=== PATIENT | female | born 1960 | race Two or more races ===

== ENCOUNTER 2017-07-23 12:27 | Inpatient (IN) | payer MEDICAID ==
[~2017-07-23] VITALS: Ht 167.6 cm; Wt 99.8 kg
[2017-07-23 13:30] LABS: Basophils # (auto) 0 uL; Eosinophils # (auto) 0 uL; Monocytes # (auto) 0.6 uL; Nucleated Red Blood Cells % 0.4 %; Platelet Count (auto) 84 10^3/uL (140-450); Red Cell Distribution Width 16.2 % (11.8-14.3); White Blood Cell 5.5 10^3/uL (4.4-10.8)
[2017-07-23 13:31] LABS: Basophils % (auto) 0.6 % (0.0-2.0); Eosinophils % (auto) 0.9 % (0.0-7.0); Hematocrit 34.2 % (36.0-46.0); Hemoglobin 12.1 g/dL (12.2-16.2); Lymphocytes % (auto) 36.2 % (10.0-50.0); Mean Corpuscular Hgb Conc. 35.2 g/dL (32.0-36.0); Mean Corpuscular Volume 113.6 fL (80.0-100.0); Monocytes % (auto) 10.2 % (0.0-12.0); Neutrophils # (auto) 2.9 uL; Neutrophils % (auto) 52.1 % (37.0-80.0); Red Blood Cells 3.01 10^6/uL (4.0-5.20)
[2017-07-23] MEDS ORDERED: SODIUM CHLORIDE 0.9% 1,000 ML IV ONE (14:12)
[2017-07-23 14:48] LABS: Magnesium 2.3 mg/dL (1.6-2.6)
[2017-07-23 15:05] LABS: INR 1.73 (0.9-1.15); Partial Thromboplastin Time 34.5 sec (22.64-33.71)
[2017-07-23 15:42] LABS: Albumin 3.1 g/dL (3.4-5.0); BUN/Creatinine Ratio 7.1; Bilirubin, Total 17.8 mg/dL (0.2-1.0); Calcium 8.5 mg/dL (8.5-10.1); Potassium 3.1 mmol/L (3.5-5.1); Total Protein 6.8 g/dL (6.4-8.2)
[2017-07-23] MEDS ORDERED: cefTRIAXone 1GM/10ml IVPUSH 10 ML IV ONE (15:45)
[2017-07-23 16:58] LABS: Urine Bacteria FEW /hpf (None Seen); Urine Blood Negative /uL (Negative); Urine Mucus FEW (None Seen); Urine Specific Gravity 1.018 (1.001-1.035); Urine WBC 1 /hpf (0 - 5)
[2017-07-23] MEDS ORDERED: POTASSIUM CHL 10% (20 MEQ/15ML) 15ml ORAL SOLN PO ONE (17:30)
[2017-07-23] MEDS ORDERED: NITROGLYCERIN 0.4 MG SL TAB SL PRN (18:00)
[2017-07-23] MEDS ORDERED: MORPHINE SULFATE 10 MG/ML INJ 1ML SDV IV PRN ×3 (18:00)
[2017-07-23] MEDS ORDERED: SPIRONOLACTONE 25 MG TAB PO ONE (18:00)
[2017-07-23] MEDS ORDERED: PROMETHAZINE HCL 25 MG/ML 1ML IV PRN (18:00)
[2017-07-23] MEDS ORDERED: TEMAZEPAM 15 MG CAP PO PRN (18:00)
[2017-07-23] MEDS: FUROSEMIDE 20 MG TAB PO SCH (18:25)
[2017-07-23] MEDS: LORazepam 0.5 MG TAB PO PRN (18:25)
[2017-07-23] MEDS ORDERED: THIAMINE HCL 100 MG/ML 2ML VIAL IV ONE (19:00)
[2017-07-23 19:53] VITALS: BP 142/87
[2017-07-23] MEDS: FAMOTIDINE 20 MG TAB PO SCH (22:30)
[2017-07-23] MEDS: LACTULOSE 20Gm/30ML SOLN PO SCH (22:30)
[2017-07-23] MEDS: chlordiazePOXIDE HCL 25 MG CAP PO PRN (22:37)
[2017-07-23 22:54] VITALS: BP 142/87
[2017-07-24] VITALS (7 sets, daily range): BP systolic 121–138; BP diastolic 65–81
[2017-07-24] MEDS: SPIRONOLACTONE 25 MG TAB PO SCH ×2 (05:53→18:24)
[2017-07-24] MEDS: FUROSEMIDE 20 MG TAB PO SCH ×2 (05:53→18:24)
[2017-07-24 07:19] LABS: Basophils # (auto) 0 uL; Eosinophils # (auto) 0.1 uL; Eosinophils % (auto) 1.2 % (0.0-7.0)
[2017-07-24 07:22] LABS: Basophils % (auto) 0.7 % (0.0-2.0); Hematocrit 31.7 % (36.0-46.0); Hemoglobin 11.3 g/dL (12.2-16.2); Lymphocytes # (auto) 2.5 uL; Lymphocytes % (auto) 45.4 % (10.0-50.0); Mean Corpuscular Hemoglobin 40.2 pg (28.0-32.0); Mean Corpuscular Hgb Conc. 35.5 g/dL (32.0-36.0); Mean Corpuscular Volume 113.3 fL (80.0-100.0); Monocytes # (auto) 0.5 uL; Monocytes % (auto) 9.2 % (0.0-12.0); Neutrophils # (auto) 2.4 uL; Neutrophils % (auto) 43.5 % (37.0-80.0); Nucleated Red Blood Cells % 0.2 %; Red Cell Distribution Width 15.5 % (11.8-14.3); White Blood Cell 5.6 10^3/uL (4.4-10.8)
[2017-07-24 07:24] LABS: Platelet Count (auto) 74 10^3/uL (140-450)
[2017-07-24 07:53] LABS: Albumin 2.8 g/dL (3.4-5.0); Bilirubin, Total 17.8 mg/dL (0.2-1.0); Calcium 8.6 mg/dL (8.5-10.1); Potassium 3.5 mmol/L (3.5-5.1); Total Protein 6.4 g/dL (6.4-8.2)
[2017-07-24 09:04] LABS: Hepatitis B Surface Antibody Negative
[2017-07-24 09:29] LABS: Hepatitis B Surface Antigen Negative (Negative)
[2017-07-24 09:37] LABS: Hepatitis A Total Antibody Negative; Hepatitis C Antibody Negative (Negative)
[2017-07-24 09:38] LABS: Hepatitis B Core Total AB Negative
[2017-07-24] MEDS: FAMOTIDINE 20 MG TAB PO SCH ×2 (11:05→22:32)
[2017-07-24] MEDS: LORazepam 0.5 MG TAB PO PRN ×2 (11:05→18:27)
[2017-07-24] MEDS: THIAMINE HCL 100 MG/ML 2ML VIAL IV SCH (11:06)
[2017-07-24] MEDS: LACTULOSE 20Gm/30ML SOLN PO SCH ×2 (11:06→22:32)
[2017-07-24] MEDS: chlordiazePOXIDE HCL 25 MG CAP PO PRN ×2 (14:52→22:32)
[2017-07-24 16:25] LABS: % Iron Saturation 73.6 % (15-50)
[2017-07-25 05:50] VITALS: BP 117/57
[2017-07-25] MEDS: FUROSEMIDE 20 MG TAB PO SCH (05:50)
[2017-07-25] MEDS: SPIRONOLACTONE 25 MG TAB PO SCH (05:50)
[2017-07-25 07:18] LABS: Albumin 2.6 g/dL (3.4-5.0); BUN/Creatinine Ratio 6.8; Calcium 8.7 mg/dL (8.5-10.1); Potassium 3.2 mmol/L (3.5-5.1)
[2017-07-25 07:29] LABS: Bilirubin, Total 15.8 mg/dL (0.2-1.0); Total Protein 5.9 g/dL (6.4-8.2)
[2017-07-25 08:00] VITALS: BP 119/78
[2017-07-25] MEDS ORDERED: POTASSIUM CHL 10 Meq TABLET PO ONE (08:45)
[2017-07-25 09:00] VITALS: BP 119/78
[2017-07-25] MEDS ORDERED: SPIR25TA88 PO (10:01)
[2017-07-25] MEDS ORDERED: MULTTAB75 PO (10:01)
[2017-07-25] MEDS ORDERED: FUR20T PO (10:01)
[2017-07-25] MEDS ORDERED: LACT10SO3 PO (10:01)
[2017-07-25] MEDS: THIAMINE HCL 100 MG/ML 2ML VIAL IV SCH (10:08)
[2017-07-25] MEDS: LACTULOSE 20Gm/30ML SOLN PO SCH (10:08)
[2017-07-25] MEDS: LORazepam 0.5 MG TAB PO PRN (10:08)
[2017-07-25] MEDS: FAMOTIDINE 20 MG TAB PO SCH (10:08)
[2017-07-25 11:06] LABS: Alcohol, Urine < 3.0 mg/dL (0-5); Amphetamine Screen, Urine NEGATIVE (NEGATIVE); Barbiturate Scree,Urine NEGATIVE (NEGATIVE); Benzodiazephine Screen, Urine POSITIVE (NEGATIVE); Cannabinoid Screen, Urine NEGATIVE (NEGATIVE); Cocaine Screen, Urine NEGATIVE (NEGATIVE); Opiate Scree,Urine NEGATIVE (NEGATIVE); Phencyclidine Screen, Urine NEGATIVE (NEGATIVE)
[2017-07-25 11:54] VITALS: BP 123/70
[2017-07-25 13:00] VITALS: BP 123/70
== END 2017-07-25 14:00 | disposition home health service (06) | DRG 280 ==
LOC: EDBD 12:27 → ER 12:27 → TELE 12:28 → TELE-CENTR 19:53 → CENTRAL 07-24 16:01
PROVIDERS: ADMIT Internal Medicine; ATTEND Internal Medicine
DX: K70.31 Alcoholic cirrhosis of liver with ascites (principal); J90 Pleural effusion, not elsewhere classified; J18.9 Pneumonia, unspecified organism; E72.20 Disorder of urea cycle metabolism, unspecified; K85.90 Acute pancreatitis without necrosis or infection, unspecified; K76.6 Portal hypertension; D69.6 Thrombocytopenia, unspecified; E44.1 Mild protein-calorie malnutrition; J98.11 Atelectasis; E88.09 Other disorders of plasma-protein metabolism, not elsewhere classified; E87.6 Hypokalemia; F10.10 Alcohol abuse, uncomplicated; F41.9 Anxiety disorder, unspecified; H54.8 Legal blindness, as defined in USA; K57.30 Diverticulosis of large intestine without perforation or abscess without bleeding; R60.1 Generalized edema; H35.53 Other dystrophies primarily involving the sensory retina; F40.228 Other natural environment type phobia; Z60.2 Problems related to living alone; R16.1 Splenomegaly, not elsewhere classified; E66.9 Obesity, unspecified; I86.8 Varicose veins of other specified sites; Z80.41 Family history of malignant neoplasm of ovary; Z82.1 Family history of blindness and visual loss; Z83.3 Family history of diabetes mellitus; Z90.49 Acquired absence of other specified parts of digestive tract; Z68.35 Body mass index [BMI] 35.0-35.9, adult
CPT/HCPCS: 36415; 71046; 74176; 80053; 80061; 80307; 81001; 82105; 82140; 82150; 82390; 83540; 83550; 83690; 83735; 84443; 85025; 85610; 85652; 85730; 86038; 86704; 86706; 86708; 86803; 87040; 87340; 93005; 93306; 96374

== ENCOUNTER 2017-09-24 18:36 | Inpatient (IN) | payer MEDICAID ==
[~2017-09-24] VITALS: Ht 165.1 cm; Wt 101.9 kg
[~2017-09-24 18:36] MED LIST: FUR20T PO; LACT10SO3 PO; MULTTAB75 PO; SPIR25TA88 PO
[2017-09-24 20:12] LABS: Basophils # (auto) 0 uL; Basophils % (auto) 0.2 % (0.0-2.0); Eosinophils # (auto) 0 uL; Eosinophils % (auto) 0.2 % (0.0-7.0); Lymphocytes # (auto) 2.3 uL; Neutrophils # (auto) 7.5 uL; Nucleated Red Blood Cells % 0.1 %; Platelet Count (auto) 126 10^3/uL (140-450); Red Blood Cells 2.44 10^6/uL (4.0-5.20); Red Cell Distribution Width 14.8 % (11.8-14.3)
[2017-09-24 20:15] LABS: Hematocrit 28.8 % (36.0-46.0); Hemoglobin 10.3 g/dL (12.2-16.2); Lymphocytes % (auto) 20.2 % (10.0-50.0); Mean Corpuscular Hemoglobin 42.3 pg (28.0-32.0); Mean Corpuscular Hgb Conc. 35.8 g/dL (32.0-36.0); Mean Corpuscular Volume 118.2 fL (80.0-100.0); Monocytes # (auto) 1.3 uL; Monocytes % (auto) 12.1 % (0.0-12.0); Neutrophils % (auto) 67.3 % (37.0-80.0); White Blood Cell 11.1 10^3/uL (4.4-10.8)
[2017-09-24 20:20] LABS: Albumin 2.6 g/dL (3.4-5.0); BUN/Creatinine Ratio 11.2; Calcium 8.8 mg/dL (8.5-10.1); Potassium 3.2 mmol/L (3.5-5.1)
[2017-09-24 20:33] LABS: Bilirubin, Total 24.6 mg/dL (0.2-1.0); Total Protein 5.9 g/dL (6.4-8.2)
[2017-09-25] MEDS ORDERED: POTASSIUM CHL 10% (20 MEQ/15ML) 15ml ORAL SOLN PO ONE (10:45)
[2017-09-25] MEDS ORDERED: NITROGLYCERIN 0.4 MG SL TAB SL PRN (11:00)
[2017-09-25] MEDS ORDERED: PROMETHAZINE HCL 25 MG/ML 1ML IV PRN (11:00)
[2017-09-25] MEDS ORDERED: LORazepam 2MG/ML-1ML VIAL IV PRN (11:00)
[2017-09-25] MEDS ORDERED: chlordiazePOXIDE HCL 25 MG CAP PO PRN (11:00)
[2017-09-25] MEDS ORDERED: AZITHROMYCIN 500MG/ 250ML 250 ML IV ONE (11:00)
[2017-09-25] MEDS ORDERED: MORPHINE SULFATE 4 MG/ML SYR/VIAL IV PRN ×2 (11:00)
[2017-09-25] MEDS ORDERED: cefTRIAXone 1GM/10ml IVPUSH 10 ML IV ONE ×2 (11:00)
[2017-09-25] MEDS ORDERED: THIAMINE HCL 100 MG/ML 2ML VIAL IV ONE (11:00)
[2017-09-25] MEDS ORDERED: PANTOPRAZOLE 40 MG/10 ML VIAL IV ONE (11:00)
[2017-09-25] MEDS ORDERED: LACTULOSE 20Gm/30ML SOLN PO SCH ×2 (11:04→14:00)
[2017-09-25] MEDS ORDERED: MULTIPLE VITAMINS W/ MINERALS TAB PO ONE (11:15)
[2017-09-25] MEDS ORDERED: FUROSEMIDE 20 MG TAB PO ONE (11:15)
[2017-09-25] MEDS ORDERED: SPIRONOLACTONE 25 MG TAB PO ONE (11:15)
[2017-09-25 11:40] LABS: Amylase 25 U/L (25-115); Lipase 269 U/L (73-393)
[2017-09-25 11:58] LABS: Lactic Acid w/Reflex 2.2 mmol/L (0.4-2.0)
[2017-09-25 12:29] LABS: Urine Bacteria MANY /hpf (None Seen); Urine Blood Negative /uL (Negative); Urine Mucus FEW (None Seen); Urine Specific Gravity 1.022 (1.001-1.035); Urine WBC 42 /hpf (0 - 5)
[2017-09-25 13:08] LABS: INR 1.94 (0.9-1.15); Prothrombin Time 21.3 sec (9.37-12.3)
[2017-09-25] MEDS ORDERED: RIFAXIMIN 550 MG TAB PO ONE (13:30)
[2017-09-25] MEDS ORDERED: LACTULOSE 20Gm/30ML SOLN PO PRN (14:45)
[2017-09-25 17:11] VITALS: BP 99/54
[2017-09-25] MEDS ORDERED: FUROSEMIDE 20 MG TAB PO SCH (18:00)
[2017-09-25] MEDS ORDERED: SPIRONOLACTONE 25 MG TAB PO SCH (18:00)
[2017-09-25] MEDS: ALBUTEROL SULF 2.5 MG/0.5ML(0.5%) NEB SOLN NEB PRN (19:00)
[2017-09-25 21:02] VITALS: BP 99/54
[2017-09-25 21:36] VITALS: BP 108/64
[2017-09-25] MEDS: TEMAZEPAM 15 MG CAP PO PRN (21:56)
[2017-09-25] MEDS ORDERED: PATIENTS OWN MEDICATION (Lactulose 30 ML) PO SCH (22:00)
[2017-09-25] MEDS ORDERED: RIFAXIMIN 550 MG TAB PO SCH (22:00)
[2017-09-26 05:00] VITALS: BP 110/71
[2017-09-26 06:27] LABS: Basophils # (auto) 0 uL; Hematocrit 23.2 % (36.0-46.0); Lymphocytes # (auto) 3.1 uL; Monocytes # (auto) 1.4 uL; Neutrophils # (auto) 7.9 uL; Nucleated Red Blood Cells % 0.1 %
[2017-09-26 06:38] LABS: Basophils % (auto) 0.2 % (0.0-2.0); Eosinophils # (auto) 0.1 uL; Eosinophils % (auto) 1.1 % (0.0-7.0); Hemoglobin 8.5 g/dL (12.2-16.2); Lymphocytes % (auto) 24.6 % (10.0-50.0); Mean Corpuscular Hemoglobin 43.1 pg (28.0-32.0); Mean Corpuscular Hgb Conc. 36.7 g/dL (32.0-36.0); Mean Corpuscular Volume 117.6 fL (80.0-100.0); Monocytes % (auto) 11.4 % (0.0-12.0); Neutrophils % (auto) 62.7 % (37.0-80.0); Red Blood Cells 1.98 10^6/uL (4.0-5.20); Red Cell Distribution Width 14.5 % (11.8-14.3); White Blood Cell 12.5 10^3/uL (4.4-10.8)
[2017-09-26 06:47] LABS: Platelet Count (auto) 88 10^3/uL (140-450)
[2017-09-26 06:51] LABS: Potassium 3.5 mmol/L (3.5-5.1)
[2017-09-26 06:56] LABS: Albumin 2.2 g/dL (3.4-5.0); BUN/Creatinine Ratio 16.1; Calcium 8.6 mg/dL (8.5-10.1)
[2017-09-26 07:07] LABS: Bilirubin, Total 24.5 mg/dL (0.2-1.0)
[2017-09-26 09:11] VITALS: BP 91/52
[2017-09-26] MEDS: cefTRIAXone 1GM/10ml IVPUSH 10 ML IV SCH (09:47)
[2017-09-26] MEDS: MULTIPLE VITAMINS W/ MINERALS TAB PO SCH (09:48)
[2017-09-26] MEDS: PANTOPRAZOLE 40 MG TAB PO SCH (09:48)
[2017-09-26] MEDS ORDERED: FUROSEMIDE 20 MG TAB PO SCH ×2 (10:00)
[2017-09-26] MEDS ORDERED: AZITHROMYCIN 500MG/ 250ML 250 ML IV SCH (10:00)
[2017-09-26] MEDS ORDERED: THIAMINE HCL 100 MG/ML 2ML VIAL IV SCH (10:00)
[2017-09-26 11:14] VITALS: BP 105/56
[2017-09-26] MEDS ORDERED: POLYETHYLENE GLYCOL 17 GM PWDR PO PRN (15:15)
[2017-09-26 16:14] VITALS: BP 107/55
[2017-09-26] MEDS: ALPRAZolam 0.5 MG TAB PO PRN (16:32)
[2017-09-26] MEDS: THIAMINE HCL 100 MG TAB PO SCH (16:32)
[2017-09-26] MEDS: TEMAZEPAM 15 MG CAP PO PRN (21:41)
[2017-09-26 22:00] VITALS: BP 127/60
[2017-09-27 05:00] VITALS: BP 97/55
[2017-09-27] MEDS: ALPRAZolam 0.5 MG TAB PO PRN ×3 (05:06→21:00)
[2017-09-27 08:00] VITALS: BP 104/64
[2017-09-27] MEDS: PANTOPRAZOLE 40 MG TAB PO SCH (09:15)
[2017-09-27] MEDS: THIAMINE HCL 100 MG TAB PO SCH (09:15)
[2017-09-27] MEDS: MULTIPLE VITAMINS W/ MINERALS TAB PO SCH (09:15)
[2017-09-27] MEDS: cefTRIAXone 1GM/10ml IVPUSH 10 ML IV SCH (09:19)
[2017-09-27] MEDS: LEVOFLOXACIN 500MG 100 ML IV SCH (09:22)
[2017-09-27] MEDS: ALBUTEROL SULF 2.5 MG/0.5ML(0.5%) NEB SOLN NEB PRN (09:36)
[2017-09-27 12:00] VITALS: BP 101/60
[2017-09-27 17:30] VITALS: BP 118/58
[2017-09-27 22:00] VITALS: BP 92/50
[2017-09-27] MEDS: TEMAZEPAM 15 MG CAP PO PRN (22:34)
[2017-09-28] MEDS: ALPRAZolam 0.5 MG TAB PO PRN ×2 (00:01→13:44)
[2017-09-28 05:09] LABS: Basophils # (auto) 0.1 uL; Eosinophils # (auto) 0.3 uL; Hemoglobin 9.1 g/dL (12.2-16.2); Lymphocytes # (auto) 4.1 uL; Nucleated Red Blood Cells % 0.1 %; Platelet Count (auto) 90 10^3/uL (140-450)
[2017-09-28 05:11] LABS: Basophils % (auto) 0.8 % (0.0-2.0); Eosinophils % (auto) 3.1 % (0.0-7.0); Hematocrit 24.4 % (36.0-46.0); Lymphocytes % (auto) 39.7 % (10.0-50.0); Mean Corpuscular Hemoglobin 43.4 pg (28.0-32.0); Mean Corpuscular Hgb Conc. 37.1 g/dL (32.0-36.0); Mean Corpuscular Volume 117.2 fL (80.0-100.0); Monocytes % (auto) 10.1 % (0.0-12.0); Neutrophils # (auto) 4.8 uL; Neutrophils % (auto) 46.3 % (37.0-80.0); Red Blood Cells 2.08 10^6/uL (4.0-5.20); Red Cell Distribution Width 14.6 % (11.8-14.3); White Blood Cell 10.3 10^3/uL (4.4-10.8)
[2017-09-28 05:42] LABS: Bilirubin, Direct 11.1 mg/dL (0-0.2); Bilirubin, Total 18.2 mg/dL (0.2-1.0); Potassium 3.2 mmol/L (3.5-5.1); Total Protein 5.1 g/dL (6.4-8.2)
[2017-09-28 06:00] VITALS: BP 98/59
[2017-09-28 09:01] VITALS: BP 92/59
[2017-09-28] MEDS: MULTIPLE VITAMINS W/ MINERALS TAB PO SCH ×2 (09:40→10:11)
[2017-09-28] MEDS: THIAMINE HCL 100 MG TAB PO SCH ×2 (09:40→10:13)
[2017-09-28] MEDS: PANTOPRAZOLE 40 MG TAB PO SCH ×2 (09:40→10:12)
[2017-09-28] MEDS: cefTRIAXone 1GM/10ml IVPUSH 10 ML IV SCH (11:53)
[2017-09-28] MEDS: LEVOFLOXACIN 500MG 100 ML IV SCH (11:53)
[2017-09-28 12:00] VITALS: BP 100/57
[2017-09-28] MEDS ORDERED: POTASSIUM CHL 20 Meq TABLET PO ONE ×2 (13:15→13:45)
[2017-09-28 17:00] VITALS: BP 102/50
[2017-09-28 20:00] VITALS: BP 98/45
[2017-09-28 20:57] VITALS: BP 102/50
[2017-09-28] MEDS: TEMAZEPAM 15 MG CAP PO PRN (22:04)
[2017-09-29] VITALS (7 sets, daily range): BP systolic 87–161; BP diastolic 40–70
[2017-09-29 06:53] LABS: Albumin 2.2 g/dL (3.4-5.0); BUN/Creatinine Ratio 12.4; Bilirubin, Direct 10.5 mg/dL (0-0.2); Bilirubin, Total 17.5 mg/dL (0.2-1.0); Potassium 3.5 mmol/L (3.5-5.1); Total Protein 5.5 g/dL (6.4-8.2)
[2017-09-29 07:01] LABS: Eosinophils # (auto) 0.4 uL; Hemoglobin 9.4 g/dL (12.2-16.2); Monocytes # (auto) 1.3 uL; Nucleated Red Blood Cells % 0.1 %; White Blood Cell 12.3 10^3/uL (4.4-10.8)
[2017-09-29 07:03] LABS: Basophils # (auto) 0 uL; Basophils % (auto) 0.4 % (0.0-2.0); Eosinophils % (auto) 3.6 % (0.0-7.0); Hematocrit 26.1 % (36.0-46.0); Lymphocytes # (auto) 2.9 uL; Lymphocytes % (auto) 23.2 % (10.0-50.0); Mean Corpuscular Hemoglobin 43.1 pg (28.0-32.0); Mean Corpuscular Hgb Conc. 35.9 g/dL (32.0-36.0); Neutrophils # (auto) 7.6 uL; Neutrophils % (auto) 61.8 % (37.0-80.0); Platelet Count (auto) 115 10^3/uL (140-450); Red Blood Cells 2.18 10^6/uL (4.0-5.20); Red Cell Distribution Width 14.8 % (11.8-14.3)
[2017-09-29] MEDS: PANTOPRAZOLE 40 MG TAB PO SCH (09:51)
[2017-09-29] MEDS: THIAMINE HCL 100 MG TAB PO SCH (09:52)
[2017-09-29] MEDS: MULTIPLE VITAMINS W/ MINERALS TAB PO SCH (09:52)
[2017-09-29] MEDS: LEVOFLOXACIN 500MG 100 ML IV SCH (10:05)
[2017-09-29] MEDS: TEMAZEPAM 15 MG CAP PO PRN (21:44)
[2017-09-30] MEDS: ALPRAZolam 0.5 MG TAB PO PRN ×3 (00:02→13:50)
[2017-09-30 05:28] VITALS: BP 93/51
[2017-09-30 06:09] LABS: Basophils # (auto) 0 uL; Eosinophils # (auto) 0.4 uL; Hemoglobin 8.7 g/dL (12.2-16.2); Mean Corpuscular Hgb Conc. 36.1 g/dL (32.0-36.0); Monocytes % (auto) 8.6 % (0.0-12.0); Red Blood Cells 2.02 10^6/uL (4.0-5.20); White Blood Cell 11.6 10^3/uL (4.4-10.8)
[2017-09-30 06:11] LABS: Basophils % (auto) 0.3 % (0.0-2.0); Eosinophils % (auto) 3.1 % (0.0-7.0); Hematocrit 24.2 % (36.0-46.0); Lymphocytes % (auto) 25.6 % (10.0-50.0); Mean Corpuscular Hemoglobin 43.1 pg (28.0-32.0); Mean Corpuscular Volume 119.3 fL (80.0-100.0); Neutrophils # (auto) 7.3 uL; Neutrophils % (auto) 62.4 % (37.0-80.0); Platelet Count (auto) 107 10^3/uL (140-450); Red Cell Distribution Width 15.4 % (11.8-14.3)
[2017-09-30 06:35] LABS: BUN/Creatinine Ratio 12.3; Bilirubin, Direct 9.5 mg/dL (0-0.2); Bilirubin, Total 15.9 mg/dL (0.2-1.0); Calcium 8.1 mg/dL (8.5-10.1); Potassium 3.8 mmol/L (3.5-5.1); Total Protein 5.2 g/dL (6.4-8.2)
[2017-09-30] MEDS ORDERED: FLUCONAZOLE 100 MG TAB PO ONE (08:00)
[2017-09-30 08:48] VITALS: BP 90/45
[2017-09-30] MEDS: MORPHINE SULFATE 4 MG/ML SYR/VIAL IV PRN (09:41)
[2017-09-30 11:09] LABS: INR 1.7 (0.9-1.15); Prothrombin Time 18.6 sec (9.37-12.3)
[2017-09-30] MEDS: THIAMINE HCL 100 MG TAB PO SCH (11:19)
[2017-09-30] MEDS: PANTOPRAZOLE 40 MG TAB PO SCH (11:20)
[2017-09-30] MEDS: MULTIPLE VITAMINS W/ MINERALS TAB PO SCH (11:20)
[2017-09-30] MEDS: LEVOFLOXACIN 500MG 100 ML IV SCH (11:21)
[2017-09-30 12:34] VITALS: BP 96/55
[2017-09-30] MEDS ORDERED: ALBUMIN 25% 100 ML IV ONE (14:00)
[2017-09-30 17:00] VITALS: BP 95/46
[2017-09-30 22:00] VITALS: BP 102/31
[2017-09-30] MEDS: TEMAZEPAM 15 MG CAP PO PRN (22:30)
[2017-10-01] MEDS: MORPHINE SULFATE 4 MG/ML SYR/VIAL IV PRN ×2 (02:52→21:45)
[2017-10-01 05:00] VITALS: BP 95/42
[2017-10-01 06:08] LABS: Eosinophils # (auto) 0.3 uL; Eosinophils % (auto) 2.3 % (0.0-7.0); Hemoglobin 8.3 g/dL (12.2-16.2); Lymphocytes # (auto) 2.6 uL; Lymphocytes % (auto) 20.5 % (10.0-50.0); Nucleated Red Blood Cells % 0.1 %
[2017-10-01 06:10] LABS: Basophils # (auto) 0.1 uL; Basophils % (auto) 0.5 % (0.0-2.0); Hematocrit 22.9 % (36.0-46.0); Mean Corpuscular Hemoglobin 42.9 pg (28.0-32.0); Mean Corpuscular Hgb Conc. 36.1 g/dL (32.0-36.0); Monocytes # (auto) 1.3 uL; Monocytes % (auto) 9.8 % (0.0-12.0); Neutrophils # (auto) 8.5 uL; Neutrophils % (auto) 66.9 % (37.0-80.0); Platelet Count (auto) 94 10^3/uL (140-450); Red Blood Cells 1.93 10^6/uL (4.0-5.20); Red Cell Distribution Width 14.7 % (11.8-14.3); White Blood Cell 12.7 10^3/uL (4.4-10.8)
[2017-10-01 06:25] LABS: Albumin 2.1 g/dL (3.4-5.0); BUN/Creatinine Ratio 13.3; Bilirubin, Direct 8.1 mg/dL (0-0.2); Calcium 7.9 mg/dL (8.5-10.1); Potassium 3.7 mmol/L (3.5-5.1)
[2017-10-01 09:00] VITALS: BP 97/54
[2017-10-01] MEDS: LEVOFLOXACIN 500MG 100 ML IV SCH (09:24)
[2017-10-01] MEDS: PANTOPRAZOLE 40 MG TAB PO SCH (09:24)
[2017-10-01] MEDS: MULTIPLE VITAMINS W/ MINERALS TAB PO SCH (09:24)
[2017-10-01] MEDS: THIAMINE HCL 100 MG TAB PO SCH (09:24)
[2017-10-01] MEDS: ALBUTEROL SULF 2.5 MG/0.5ML(0.5%) NEB SOLN NEB PRN (10:05)
[2017-10-01 13:00] VITALS: BP 101/47
[2017-10-01 17:00] VITALS: BP 117/44
[2017-10-01] MEDS: ALPRAZolam 0.5 MG TAB PO PRN (17:11)
[2017-10-01 19:56] LABS: Hematocrit 24.5 % (36.0-46.0); Hemoglobin 8.7 g/dL (12.2-16.2)
[2017-10-01 23:04] VITALS: BP 98/62
[2017-10-02 02:36] VITALS: BP 98/62
[2017-10-02 06:01] VITALS: BP 94/43
[2017-10-02 06:47] LABS: Basophils # (auto) 0 uL; Calcium 8.3 mg/dL (8.5-10.1); Hematocrit 22.4 % (36.0-46.0); Monocytes # (auto) 1.3 uL; Neutrophils % (auto) 67.7 % (37.0-80.0); Potassium 3.9 mmol/L (3.5-5.1)
[2017-10-02 06:50] LABS: BUN/Creatinine Ratio 16.6
[2017-10-02 06:51] LABS: Basophils % (auto) 0.2 % (0.0-2.0); Eosinophils # (auto) 0.2 uL; Hemoglobin 8.2 g/dL (12.2-16.2); Lymphocytes # (auto) 2.5 uL; Mean Corpuscular Hemoglobin 43.2 pg (28.0-32.0); Mean Corpuscular Hgb Conc. 36.4 g/dL (32.0-36.0); Mean Corpuscular Volume 118.5 fL (80.0-100.0); Monocytes % (auto) 10.1 % (0.0-12.0); Neutrophils # (auto) 8.4 uL; Platelet Count (auto) 98 10^3/uL (140-450); Red Blood Cells 1.89 10^6/uL (4.0-5.20); Red Cell Distribution Width 14.4 % (11.8-14.3); White Blood Cell 12.5 10^3/uL (4.4-10.8)
[2017-10-02 08:00] VITALS: BP 96/54
[2017-10-02] MEDS: LEVOFLOXACIN 500MG 100 ML IV SCH (10:32)
[2017-10-02] MEDS: MULTIPLE VITAMINS W/ MINERALS TAB PO SCH (10:33)
[2017-10-02] MEDS: PANTOPRAZOLE 40 MG TAB PO SCH (10:33)
[2017-10-02] MEDS: THIAMINE HCL 100 MG TAB PO SCH (10:33)
[2017-10-02] MEDS: ALPRAZolam 0.5 MG TAB PO PRN (10:37)
[2017-10-02] MEDS ORDERED: MORPHINE SULFATE 4 MG/ML SYR/VIAL IV PRN ×3 (12:15)
[2017-10-02] MEDS ORDERED: TEMAZEPAM 15 MG CAP PO PRN (12:15)
[2017-10-02 12:41] VITALS: BP 90/44
[2017-10-02 13:04] LABS: INR 1.65 (0.9-1.15); Prothrombin Time 18.1 sec (9.37-12.3)
[2017-10-02 16:36] VITALS: BP 100/51
[2017-10-02 21:30] VITALS: BP 110/61
[2017-10-03] MEDS: ALPRAZolam 0.5 MG TAB PO PRN (04:30)
[2017-10-03 05:00] VITALS: BP 97/52
[2017-10-03 09:40] VITALS: BP 109/54
[2017-10-03] MEDS ORDERED: LEVOFLOXACIN 500 MG TAB PO SCH (10:00)
[2017-10-03] MEDS ORDERED: FLUCONAZOLE 100 MG TAB PO ONE (10:45)
[2017-10-03] MEDS ORDERED: LIDOCAINE 2% (LOCAL ANESTH.) PF 5ml SDV ONE ×2 (10:59→11:00)
[2017-10-03] MEDS: ALBUMIN 25% 100 ML IV SCH ×2 (12:00→14:08)
[2017-10-03 13:00] VITALS: BP 118/67
[2017-10-03] MEDS: THIAMINE HCL 100 MG TAB PO SCH (14:07)
[2017-10-03] MEDS: PANTOPRAZOLE 40 MG TAB PO SCH (14:07)
[2017-10-03] MEDS: MULTIPLE VITAMINS W/ MINERALS TAB PO SCH (14:07)
[2017-10-03 16:46] VITALS: BP 120/81
[2017-10-11] MEDS ORDERED: ALPR0.5T PO (19:27)
== END 2017-10-03 19:41 | disposition home or self-care (01) | DRG 279 ==
LOC: ER 18:36 → TELE 18:37 → TELE-WESTW 09-25 16:02 → WEST WING 10-03 00:16
PROVIDERS: ADMIT Internal Medicine; ATTEND Internal Medicine
PROC: 0W9G3ZZ Drainage of Peritoneal Cavity, Percutaneous Approach (ICD-10-PCS; principal; 2017-09-26)
PROC: 0W9G3ZZ Drainage of Peritoneal Cavity, Percutaneous Approach (ICD-10-PCS; 2017-09-30)
PROC: 0W9G3ZZ Drainage of Peritoneal Cavity, Percutaneous Approach (ICD-10-PCS; 2017-10-03)
DX: K72.90 Hepatic failure, unspecified without coma (principal); N17.0 Acute kidney failure with tubular necrosis; J18.9 Pneumonia, unspecified organism; K65.2 Spontaneous bacterial peritonitis; D68.4 Acquired coagulation factor deficiency; E44.0 Moderate protein-calorie malnutrition; K76.6 Portal hypertension; E87.1 Hypo-osmolality and hyponatremia; D69.6 Thrombocytopenia, unspecified; K70.31 Alcoholic cirrhosis of liver with ascites; E66.01 Morbid (severe) obesity due to excess calories; K59.00 Constipation, unspecified; I86.8 Varicose veins of other specified sites; F40.228 Other natural environment type phobia; R97.1 Elevated cancer antigen 125 [CA 125]; F10.10 Alcohol abuse, uncomplicated; R16.1 Splenomegaly, not elsewhere classified; H54.8 Legal blindness, as defined in USA; N39.0 Urinary tract infection, site not specified; E87.6 Hypokalemia; F41.9 Anxiety disorder, unspecified; Z90.49 Acquired absence of other specified parts of digestive tract; Z90.89 Acquired absence of other organs; Z79.899 Other long term (current) drug therapy; Z85.43 Personal history of malignant neoplasm of ovary; Z82.1 Family history of blindness and visual loss; Z68.37 Body mass index [BMI] 37.0-37.9, adult
CPT/HCPCS: 10022; 36415; 49083; 71045; 74176; 76700; 76705; 76856; 76942; 80048; 80053; 80076; 81001; 82140; 82150; 83605; 83690; 85014; 85018; 85025; 85610; 85730; 86304; 86850; 86900; 86901; 87040; 87086; 87088; 87186; 87205; 89051; 94640; 96365; 96375; C9113; J1956; P9047